=== PATIENT | male | born 1940 | race Caucasian/White ===

== ENCOUNTER 2016-09-28 22:49 | Inpatient (IN) | payer MEDICARE, OTHER ==
--- NOTE | ~2016-09-28 | DS ---
Unit #: [id number] #: [id number] Patient: DARIELA WU [id number] [address] [address] [id number] I MR#: [id number] NAME: DARIELA WU ROOM: 224 Age: 75 Sex: M Admission Date: 09/29/2016 : 1940 Discharge Date: 10/01/2016 Attending Physician: Manuela Escobar M.D. Primary Care Physician: No Primary Care Physician DISCHARGE SUMMARY PRINCIPAL DIAGNOSES 1. Complicated urinary tract infection, catheter-associated with extended spectrum betalactamase producing Escherichia coli. 2. Left renal stone. 3. Acute kidney injury, prerenal, resolved. 4. Hypertension, controlled. 5. Hypokalemia. 6. Diabetes mellitus type 2, insulin requiring, with stable glucose readings. 7. Benign prostatic hypertrophy with urinary retention requiring indwelling Flood catheter. 8. Iron deficiency anemia. 9. Right knee osteoarthritis, symptomatic. 10. History of stroke. 11. Gastroesophageal reflux disease. LEARNING DISABILITIES SPECIALIST Dr. Worley - Urology. PROCEDURE X-ray of the right knee on September 29, 2016, with tricompartmental degenerative change. CLINICAL HISTORY/HOSPITAL COURSE Mr. Wu is a 75-year-old male with a history of known left intrarenal nephrolithiasis who presents to the emergency department with mild elevated temperature and his Flood catheter not functioning correctly. In the emergency department, a urinalysis was concerning for urinary tract infection and patient was subsequently admitted. Flood catheter was changed in the emergency department and patient was placed on empiric Merrem due to a history of ESBL producing E. coli. Ultimately, urine culture has grown ESBL producing E. coli and patient will be maintained on Merrem. He does not clinically appear significantly ill from this infection throughout hospitalization. Dr. Worley was consulted given known history of left renal stone. He has been following the patient and I anticipate that patient will undergo treatment of stone on October 15 as an outpatient as previously scheduled. I will confirm this with Dr. Worley. The patient also had a mild elevation in creatinine of 1.3 upon presentation but with hydration creatinine has normalized. Unit #: [id number] #: [id number] Patient: DARIELA UW The patient was also complaining of right knee pain after his motorized wheelchair fell on it. X-ray was negative and he has been maintained on low dose narcotics. Assuming no plans for treatment of stone during hospitalization, he can be discharged home with IV antibiotics. DISCHARGE CONDITION Stable. DISCHARGE STATUS Discharge to home with home health. DISCHARGE MEDICATIONS 1. Urocit-K, two tablets p.o. t.i.d. with meals. 2. Flomax 0.4 mg daily. 3. Norvasc 10 mg daily. 4. Metoprolol tartrate 12.5 mg b.i.d. 5. Levemir 20 units subcutaneously in the morning. 6. Ferrous gluconate 324 mg b.i.d. 7. Omeprazole 20 mg daily. 8. Tramadol 50 mg p.o. q.6 hours p.r.n. for pain, number given 20. 9. Merrem 500 mg IV q.8 hours through October 06, 2016. DISCHARGE INSTRUCTIONS The patient was instructed to follow a constant carb diet. He can continue Accu-Cheks at home. He can increase activity as tolerated. Should use a walker at all times if ambulating. He will need discontinuation of (1) upon completion of antibiotics. FOLLOWUP The patient should follow up with Dr. Forman, his outpatient urologist, for treatment of stone on October 15 as previously noted. Any changes to discharge will be done as an addendum. Dictated by... Manuela Escobar M.D. ROOPA/jenna TD: 10/01/2016 11:10 JOB #: [id number] DISCHARGE SUMMARY Page 1 of 1 X Manuela Escobar MD X DISCHARGE SUMMARY
--- NOTE | ~2016-09-28 | DS ---
Unit #: [id number] #: [id number] Patient: DARIELA WU [id number] [address] [place], [place] [address] [id number] I MR#: [id number] NAME: DARIELA WU ROOM: 224 Age: 76 Sex: M Admission Date: 09/29/2016 : 1940 Discharge Date: 10/04/2016 Attending Physician: Tito Dominguez M.D. Primary Care Physician: No Primary Care Physician DISCHARGE SUMMARY ADDENDUM Since the time of discharge, we were hopeful that the patient could be sent to rehab, but due to the patient being at his baseline, subacute rehab has been denied at this time. The patient does have much social disruption in his life with not being able to get a ride to his followup appointments and needing a lot of social support, someone to bring food to his house, not being able to care for himself. We had retail planner has asked the patient about long-term care placement. The patient is not agreeable to this at this time. The patient did want to be discharged home with all previous plans "as above" with continued home health and to follow up with Dr. Forman for his outpatient surgery to take care of his left renal stone. At this time the patient is stable for discharge, and I will be discharging the patient with Macrobid, as the ESBL is sensitive to Macrobid, until October 06. DISCHARGE CONDITION Stable. DISCHARGE DIET Resume heart healthy diet with consistent carb diet per [place] [employer] recommendations. ACTIVITIES No activity restrictions. The patient can resume his baseline of ambulating with a rolling walker every day as tolerated. Continue with physical and occupational therapy. DISCHARGE MEDICINES 1. Urocit-K 2160 mg orally t.i.d. with meals. 2. Flomax 0.4 mg orally daily. 3. Norvasc 10 mg orally daily. 4. Lopressor 12.5 mg orally b.i.d. 5. Levemir 20 units subcutaneously every morning. 6. Iron supplement 325 mg orally b.i.d. 7. Ultram 50 mg orally q.6 hours as needed for pain. 8. Omeprazole 20 mg orally daily. 9. Macrobid 100 mg orally b.i.d. until October 06, 2016. FOLLOWUP Previous plans for followup with primary care physician within 1-2 weeks, as well as with Dr. Forman on October 15, as previously noted for outpatient urology stone manipulation. Unit #: [id number] #: [id number] Patient: DARIELA WU data recovery planner has placed a request with I for any further social assistance, especially with trying to obtain rides to followup appointments and will continue with [facility] for PT, OT and nursing needs. Dictated by... Dorina Cross PA-C for Nathaly Rosas/jose TD: 10/05/2016 10:13 JOB #: [id number] DISCHARGE SUMMARY Page 1 of 1 X X DISCHARGE SUMMARY
--- NOTE | ~2016-09-28 | CO ---
Unit #: [id number] #: [id number] Patient: DARIELA WU [id number] [address] [address] [id number] I MR#: [id number] NAME: DARIELA WU ROOM: 224 Age: 75 Sex: M Admission Date: 09/29/2016 : 1940 Attending Physician: Manuela Escobar M.D. Primary Care Physician: No Primary Care Physician Consultation Date: 09/29/2016 CONSULTATION REPORT REASON FOR CONSULTATION Urinary tract infection, indwelling Flood catheter. HISTORY This is a 75-year-old man who was recently discharged from his [facility] yesterday came by EMS with complaints of requesting a new Flood catheter. He has had difficulties with it becoming disconnected from his tubing. He had obvious catheter-related urinary infection, had his catheter changed in the emergency department, and is admitted for catheter-related urinary tract infection. He has a history of ESBL E. coli and retains a left ureteral stent placed by Dr. Hutchins on July 11 for obstructing left renal stones measured as 1.[address] scan the following month on August 15. He also has chronic urinary retention and has been followed by Dr. Forman who reportedly plans suprapubic tube placement for definitive management along with treatment of the stones. The patient is currently not oriented and while conversant is confused. He has a low-grade temperature and is admitted for presumed resistant infection. He was given Rocephin and Zosyn and on admission is started on meropenem. PAST MEDICAL HISTORY 1. CVA in 1982. 2. Hypertension. 3. Diabetes. 4. Hyperlipidemia. 5. Urinary retention. 6. BPH. 7. History of kidney stones, left kidney stones. 8. Clostridium difficile colitis. 9. ESBL, pseudomonas, coagulase-negative staphylococcus urinary tract infections as well as klebsiella and proteus. 10. Coronary artery disease. PAST SURGICAL HISTORY 1. Appendectomy. 2. Sacral wound. 3. Left heel decubitus. ADMISSION MEDICATIONS 1. Metoprolol. 2. Flomax. 3. Protonix. 4. Tylenol. Unit #: [id number] #: [id number] Patient: DARIELA WU 5. ProAir. 6. Levemir. 7. NovoLog. 8. He had been on Bactrim DS. ALLERGIES Tetracycline, codeine. He has had Red man syndrome from vancomycin. FAMILY HISTORY Positive for diabetes. SOCIAL HISTORY One pack per day smoker still. REVIEW OF SYSTEMS Include his catheter problems, decreased mobility. Other 10 systems reviewed and are negative. PHYSICAL EXAMINATION GENERAL: The patient is mildly disheveled, confused. HEENT: Unremarkable. LUNGS: Clear. CARDIAC: Rate and rhythm regular. ABDOMEN: Soft, nontender. Right lower quadrant incisional scar. GENITALIA: Phallus uncircumcised with purulence around the Flood catheter, significant ventral meatal erosion, testes and epididymis normally descended. RECTAL: Digital deferred. EXTREMITIES: No edema. NEUROLOGIC: Grossly intact. DIAGNOSTIC STUDIES LABORATORY: WBC 7.9. Urinalysis high consistent with infection and numerous white cells. Glucose markedly elevated at 726, BUN 32, creatinine 1.1. IMAGING: X-rays: None recent. CT: As noted above. IMPRESSION 1. Chronic indwelling Flood catheter with associated ureteral stent and stones, most certainly indicates a chronically infected urinary system and likely with resistant organism. 2. Severe meatal erosion and other Flood catheter management problems. 3. Urinary retention, increased risk for transurethral resection of prostate. PLAN Will follow culture results with you as he is treated with Merrem. Will confirm Dr. Forman's surgical plans and modify as necessary for eventual treatment of the stone and suprapubic tube placement. Thank you for the consultation, Odilia Robert. Unit #: [id number] #: [id number] Patient: DARIELA WU Dictated by... Sebastian Worley M.D. [facility]/paloma TD: 09/29/2016 13:46 JOB #: [id number] CC: Odilia Martinez M.D. CONSULTATION REPORT Page 1 of 1 X Sebastian Worley MD CONSULTATION REPORT
--- NOTE | ~2016-09-28 | CR170 ---
[facility] A Service of [facility] RADIOLOGY TEXT RESULTS PATIENT: DARIELA WU LOCATION: C2A 224-01 : 42 UNIT #: [id number] AGE: [address]: Manuela Escobar MD SEX: M ORDER DR: [id number] [facility] [address]. [place], [place] [address] [id number] I MR#: [id number] Acc #: [id number] NAME: DARIELA WU : 1940 SEX: M STUDY DATE/TIME: 09/29/2016 18:36 UNIT: C2A ROOM: 224 STUDY DESCRIPTION: CR Knee 2 Views Rt Attending Physician: Manuela Escobar M.D. Ordering Physician: Manuela Escobar M.D. Primary Care Physician: Primary Care Physician No MEDICAL IMAGING REPORT This report is preliminary unless electronic signature is present EXAM Right knee INDICATIONS Right knee pain and swelling 6 weeks after a fall. FINDINGS 2 views of the right knee without comparison. There is no acute fracture, dislocation, or effusion. There is moderate joint space narrowing particularly on the lateral joint compartment. There is some associated osteophyte formation. IMPRESSION Moderate tricompartmental degenerative change of the knee. No acute findings. Dictated by... Reno Antony M.D. THIS IS AN ELECTRONICALLY VERIFIED REPORT Reno Antony M.D. at 09/30/2016 3:22 PM [facility]/isabell TD: 09/29/2016 22:55 JOB #: [id number] MEDICAL IMAGING REPORT Page 1 of 1 COPY
--- NOTE | ~2016-09-28 | HP ---
Unit #: [id number] #: [id number] Patient: DARIELA WU [id number] [address] [address] [id number] I MR#: [id number] NAME: DARIELA WU ROOM: 48080 Age: 75 Sex: M Admission Date: 09/29/2016 : 1940 Attending Physician: Odilia Martniez M.D. Primary Care Physician: No Primary Care Physician HISTORY AND PHYSICAL CHIEF COMPLAINT Complicated urinary tract infection. HISTORY This 75-year-old male with prior CVA, hypertension, CAD, urinary retention with chronic Flood catheter in place, is admitted for a urinary tract infection. Again the patient has a Flood catheter in place. Apparently he has been experiencing some difficulty with a Flood, not being connected properly, I am unsure at this juncture. He came to this emergency department late last evening with a temperature of 99.2 but without CVA, percussion tenderness. His Flood catheter was changed out, his current urinalysis does show significant pyuria. Patient at this time is looking comfortable and not systemically ill. Does have a history, however, of ESBL. He is followed by Dr. Harry Forman for history of kidney stones. Has a 2.5 left renal calculi with plans to perform further procedures in the future. In the ER he was given Tylenol, 1 gram of Rocephin, and Zosyn. He was last admitted to this facility 07/2016 for ESBL UTI. PAST MEDICAL HISTORY 1. Hypertension. 2. AODM. 3. Hyperlipidemia. 4. CVA 1982. 5. Iron deficiency anemia. 6. History of BPH and urinary retention with chronic Flood catheter in place. 7. History of kidney stones requiring stent placement. 8. C. difficile colitis 08/09. 9. ESBL UTI, Pseudomonas urinary tract infection and Staph coag negative UTI. 10. Also Klebsiella and Proteus urinary tract infections in the past. 11. Cardiac catheterization 02/2013 revealing 60% to 70% stenosis of the RCA. Echo revealed an ejection fraction of 50% to 55% with mild MR and TR. 12. Appendectomy. 13. Sacral wound. 14. Left heel decub. ALLERGIES Tylenol #3 and tetracycline. HOME MEDICATIONS Unit #: [id number] #: [id number] Patient: DARIELA WU. Patient states that he takes 20 units of Levemir daily sliding scale insulin. He was discharged 07/2016 with Lopressor 12.5 mg b.i.d.; iron sulfate 324 mg daily; Protonix 40 mg daily; Flomax 0.4 mg daily; Claritin 10 mg as needed. FAMILY HISTORY Hypertension, diabetes mellitus, CAD, malignancy, prostate cancer. SOCIAL HISTORY The patient states that he lives in his own dwelling and he and a neighbor help each other out. He is a nonsmoker and does not drink alcohol. Uses a walker at home. REVIEW OF SYSTEMS Notable for complaints of a Flood malfunction, diabetes, hypertension, anemia, CVA, left heel decub, hypertension. All other systems were reviewed and otherwise negative. PHYSICAL EXAMINATION GENERAL: Thin, 75-year-old male currently in no acute distress. VITAL SIGNS: Temperature 99.2, pulse 101, respiration 20, blood pressure 175/69, O2 saturation 99% on room air. HEENT: Eyes - PERRLA, pharynx benign. NECK: Supple without adenopathy or thyromegaly. CHEST: Clear. BACK: Without CVA tenderness. CARDIAC: Normal S1 and S2 without murmur. ABDOMEN: Bowel sounds are present. No hepatosplenomegaly, tenderness or masses. Flood catheter at this time is draining clear appearing urine. EXTREMITIES: Notable for some DJD of the knees and mild pedal edema. NEUROLOGIC: Patient is awake, alert and oriented. His cranial nerves are intact, except that he is hard of hearing. I believe he does have decreased vision as well. Of equal strength throughout but is weak on exam. DIAGNOSTIC STUDIES LABORATORY STUDIES: Hematocrit is 31, which is his baseline normal white count, platelet count, MCV is 81. SMA 12 - glucose 312, BUN 38. Urinalysis - positive leukocyte esterase, nitrates, protein, glucose, with 10-25 red cells, 100-200 white cells, 2+ bacteria. ASSESSMENT 1. Complicated UTI with Flood catheter versus possible colonization. Patient is not systemically ill but does have a low grade temperature. 2. History of kidney stones and stent but no CVA tenderness on exam, or leukocytosis. I do not believe this represents obstructive pyelonephritis. 3. Dehydration. 4. Uncontrolled diabetes mellitus. 5. Hypertension. 6. CVA in 1982. 7. History of iron deficiency anemia. 8. History of ESBL UTI and sepsis recently. 9. Patient also has a history of polymicrobial UTI with urinary retention and Flood catheter in place along with BPH. 10. Chronic pedal edema left heel decub. 11. History of C. difficile colitis. 12. History of CAD with normal LV function. Unit #: [id number] #: [id number] Patient: DARIELA WU PLANS 1. IV fluids. 2. Diabetic control. 3. Meropenem pending cultures. Will start Florastor. 4. Urology to see in consultation. 5. Resend UA and urine C and S. 6. Verify home medicines. 7. SCDs for DVT prophylaxis. 8. Wound nurse to see. Dictated by Odilia Martinez M.D. AML/ts TD: 09/29/2016 04:59 JOB #: [id number] HISTORY AND PHYSICAL Page 1 of 1 X Odilia Martinez MD X HISTORY AND PHYSICAL
[2016-09-28 21:38] LABS: URINE SOURCE CLEAN CATCH
[2016-09-28 22:11] LABS: URINE APPEARANCE CLOUDY; URINE BILIRUBIN NEG (NEG); URINE BLOOD 1+ (NEG); URINE COLOR YELLOW; URINE GLUCOSE >1000 MG/DL (NEG); URINE KETONE NEG (NEG); URINE LEUKOCYTE ESTERASE 2+ (NEG); URINE NITRATE POS (NEG); URINE PH 5.5 (5-8); URINE PROTEIN TRACE (NEG); URINE UROBILINOGEN 0.2 MG/DL (NEG)
[2016-09-28 22:13] LABS: CULTURE INDICATED? YES; URINE BACTERIA AUWI 2+ (NEGATIVE); URINE SQUAMOUS EPITHELIAL CELL NONE SEEN /[HPF]; UWBCS1 AUWI 100-200 (0-5)
[2016-09-28 22:27] LABS: BASOPHIL% 0.4 % (0-2.5); EOSINOPHIL# 0.1 X10e3 (0-0.7); EOSINOPHIL% 1.4 % (0.0-7.0); HEMOGLOBIN 10.2 gm/dL (13.0-16.0); LYMPHOCYTE# 1.6 X10e3 (1.0-3.5); LYMPHOCYTE% 19.3 % (17.0-45.0); MEAN CELL VOLUME 80.9 FL (83-96); MEAN CORPUSCULAR HEMOGLOBIN 26.7 PG (28-34); MEAN PLATELET VOLUME 8.3 FL (6.5-11.5); MONOCYTE# 1.3 X10e3 (0-1.0); MONOCYTE% 15.1 % (3.0-12.0); NEUTROPHIL# 5.4 X10e3 (1.5-7.1); NEUTROPHIL% 63.8 % (40-75); PLATELET COUNT 203 X10e3 (140-420); RED BLOOD COUNT 3.83 X10e (3.90-5.60); RED CELL DISTRIBUTION WIDTH 14.7 % (11.0-15.5); WHITE BLOOD COUNT 8.5 X10e3 (4.0-10.5)
[2016-09-28 22:31] LABS: DIFF IND NO
[2016-09-28 22:43] LABS: ALBUMIN SERUM 3.7 g/dL (3.5-5.0); BILIRUBIN, DIRECT 0.1 mg/dL (0.0-0.2); BILIRUBIN,INDIRECT 0.4 mg/dL (0.0-0.9); BILIRUBIN,TOTAL 0.5 mg/dL (0.2-2.0); BUN/CREATININE RATIO 29.23; CREATININE SERUM 1.3 mg/dL (0.6-1.4); GLOM FILT RATE Estimated 54.1 mL/min (>60); POTASSIUM 3.7 mmol/L (3.5-5.1); PROTEIN TOTAL SERUM 6.9 g/dL (6.0-8.3)
[~2016-09-28 22:49] MED LIST: ACETAMINOPHEN PO; ADVAIR 250-501 EACH IH; ALBUTEROL17 GM INH; AMITRIPTYLINE H25 MG PO; AMITRYPTYLINE PO; ANTACID LIQUID355 M1 PO; ANTIVERT PO; ASCORBIC ACID500 M2 PO; ASPIRIN81 M2 PO; AUGMENTIN PO; BACTRIM DS TABL1 TA1 PO; CEFTIN PO; CENTRUM SILVER PO; CIPRO PO; CLOTRIMAZOLE/BE15 G1 TP; COLACE PO; COLACE50 MG PO; COREG3.125 MG PO; FLEXERIL PO; FLEXERIL10 MG PO; FLOMAX0.4 M1 PO; GLIPIZIDE10 MG PO; GLUCOPHAGE500 MG PO; GLUCOSAMINE & C1 CAP PO; GLUCOTROL PO; GLUCOTROL10 MG PO; HAIR, SKIN & N1 EAC1 PO; HYDROCODON-ACE1 EAC7 PO; IBUPROFEN PO; IBUPROFEN800 MG PO; JUVEN1 PKT PO; KLONOPIN PO; LEVAQUIN PO; LEVAQUIN750 MG PO; LEVEMIR FL100 UNIT/1 SUBQ; LEVEMIR SUBQ; LEVEMIR100 U/ML SQ; LIPITOR PO; LIPITOR20 MG PO; LISINOPRIL10 MG PO; LISINOPRIL2.5 MG PO; LISINOPRIL5 MG PO; LOMOTIL TABLET1 TAB PO; LORTAB 5/500 TA1 TA1 PO; MACROBID100 MG DOB; MECLIZINE HCL25 M1 PO; MEDI-MECLIZINE25 M1 PO; MEDROL PO; METOPROLOL TAR25 MG PO; MOBIC PO; MOBIC15 MG PO; NIFEREX-150 CAP1 CAP PO; NOVOLIN R100 UNITS/; NOVOLOG100 U/ML SUBQ; NOVOLOG100 UNITS/ INJ; OMEPRAZOLE40 MG PO; PANTOPRAZOLE SO40 MG PO; PERCODAN TABLET1 TAB PO; PRED FORTE1 ML OP; PRED FORTE1 ML OS; PRILOSEC PO; PROAIR HFA8.5 GM INH; PROTONIX PO; REZYST250 MG PO; SANTYL15 G1 TP; SULFAMETHOXAZOLE5 ML IV; VANTIN200 MG PO; VITAMIN C500 MG PO; VOLTAREN 0.1%2.5 M1 OS; ZINC SULFATE220 M1 PO; ZITHROMAX PO; ZOCOR10 MG PO
[2016-09-29 03:33] LABS: URINE SOURCE CLEAN CATCH
[2016-09-29 03:37] LABS: URINE APPEARANCE CLOUDY; URINE BILIRUBIN NEG (NEG); URINE BLOOD 2+ (NEG); URINE COLOR YELLOW; URINE GLUCOSE NEG (NEG); URINE KETONE NEG (NEG); URINE LEUKOCYTE ESTERASE 3+ (NEG); URINE NITRATE POS (NEG); URINE PH 5.5 (5-8); URINE PROTEIN 1+ (NEG); URINE SPECIFIC GRAVITY 1.018 (1.003-1.035); URINE UROBILINOGEN 0.2 MG/DL (NEG)
[2016-09-29 03:40] LABS: URBCS1 AUWI 25-50 /[HPF] (0-2); URINE BACTERIA AUWI 3+ (NEGATIVE); URINE SQUAMOUS EPITHELIAL CELL NONE SEEN /[HPF]; UWBCS1 AUWI 200-300 (0-5)
[2016-09-29 06:40] LABS: BASOPHIL% 0.4 % (0-2.5); EOSINOPHIL# 0.2 X10e3 (0-0.7); EOSINOPHIL% 2.6 % (0.0-7.0); HEMATOCRIT 32.1 % (38.0-50.0); HEMOGLOBIN 10.8 gm/dL (13.0-16.0); LYMPHOCYTE# 1.9 X10e3 (1.0-3.5); LYMPHOCYTE% 24.3 % (17.0-45.0); MEAN CELL VOLUME 80.5 FL (83-96); MEAN CORPUSCULAR HEMOGLOBIN 27.2 PG (28-34); MEAN CORPUSCULAR HGB CONC 33.8 g/dL (30-36); MEAN PLATELET VOLUME 8.7 FL (6.5-11.5); MONOCYTE# 1.1 X10e3 (0-1.0); MONOCYTE% 14.2 % (3.0-12.0); NEUTROPHIL# 4.6 X10e3 (1.5-7.1); NEUTROPHIL% 58.5 % (40-75); PLATELET COUNT 194 X10e3 (140-420); RED BLOOD COUNT 3.98 X10e (3.90-5.60); WHITE BLOOD COUNT 7.9 X10e3 (4.0-10.5)
[2016-09-29 06:46] LABS: DIFF IND NO
[2016-09-29 07:04] LABS: BUN/CREATININE RATIO 29.09; CALCIUM SERUM 9.1 mg/dL (8.4-10.2); CREATININE SERUM 1.1 mg/dL (0.6-1.4); GLOM FILT RATE Estimated 66.3 mL/min (>60); POTASSIUM 3.3 mmol/L (3.5-5.1)
[2016-09-29] MEDS ORDERED: SANTYL15 G1 TOP (10:20)
[2016-09-29] MEDS ORDERED: LEVEMIR100 UNITS/ SUBQ ×2 (10:40→10:41)
[2016-09-29] MEDS ORDERED: OMEPRAZOLE20 M1 PO (10:40)
[2016-09-29] MEDS ORDERED: NOVOLOG FL100 UNIT/1 (10:40)
[2016-09-29] MEDS ORDERED: GLUCOPHAGE500 M1 PO (10:41)
[2016-09-29] MEDS ORDERED: OXYBUTYNIN15 MG/BOTT PO (10:42)
[2016-09-29] MEDS ORDERED: VENTOLIN5 MG/ML INH (10:42)
[2016-09-29] MEDS ORDERED: PYRIDIUM100 MG PO (10:43)
[2016-09-30 06:24] LABS: BUN/CREATININE RATIO 37.77; CALCIUM SERUM 8.6 mg/dL (8.4-10.2); CREATININE SERUM 0.9 mg/dL (0.6-1.4); GLOM FILT RATE Estimated 84.4 mL/min (>60); POTASSIUM 4.4 mmol/L (3.5-5.1)
[2016-10-01 06:49] LABS: CALCIUM SERUM 8.7 mg/dL (8.4-10.2); CREATININE SERUM 0.8 mg/dL (0.6-1.4); GLOM FILT RATE Estimated 88.7 mL/min (>60); POTASSIUM 4.7 mmol/L (3.5-5.1)
[2016-10-01] MEDS ORDERED: MERREM500 MG IV (11:04)
[2016-10-01] MEDS ORDERED: TRAMADOL HCL50 M2 PO (11:05)
[2016-10-01] MEDS ORDERED: LOPRESSOR (11:06)
[2016-10-01] MEDS ORDERED: FLOMAX0.4 M1 PO (11:08)
[2016-10-01] MEDS ORDERED: NORVASC10 MG PO (11:08)
[2016-10-01] MEDS ORDERED: UROCIT K (11:08)
[2016-10-01] MEDS ORDERED: FERROUS GLUCON324 M1 (11:08)
[2016-10-03 05:11] LABS: HEMATOCRIT 27.8 % (38.0-50.0); HEMOGLOBIN 9.3 gm/dL (13.0-16.0); MEAN CELL VOLUME 80.8 FL (83-96); MEAN CORPUSCULAR HGB CONC 33.4 g/dL (30-36); MEAN PLATELET VOLUME 8.9 FL (6.5-11.5); RED BLOOD COUNT 3.44 X10e (3.90-5.60); RED CELL DISTRIBUTION WIDTH 14.9 % (11.0-15.5); WHITE BLOOD COUNT 6.6 X10e3 (4.0-10.5)
[2016-10-03 06:39] LABS: BUN/CREATININE RATIO 46.66; CALCIUM SERUM 8.7 mg/dL (8.4-10.2); CREATININE SERUM 0.9 mg/dL (0.6-1.4); GLOM FILT RATE Estimated 83.8 mL/min (>60); POTASSIUM 5.1 mmol/L (3.5-5.1)
[2016-10-04] MEDS ORDERED: UROCIT K PO (14:52)
[2016-10-04] MEDS ORDERED: METOPROLOL TAR25 MG PO (14:55)
[2016-10-04] MEDS ORDERED: MACROBID100 M1 PO (14:57)
[2016-10-04] MEDS ORDERED: PROBIOTIC250 MG PO (15:01)
== END 2016-10-04 19:15 | disposition home health service (06) | DRG 699 ==
LOC: CED 22:49 → CEDOF 09-29 02:20 → C2A 09-29 10:39
PROVIDERS: Emergency Medicine; Internal Medicine; Urology
DX: T83.511A Infection and inflammatory reaction due to indwelling urethral catheter, initial encounter (principal); N17.9 Acute kidney failure, unspecified; B96.20 Unspecified Escherichia coli [E. coli] as the cause of diseases classified elsewhere; N20.0 Calculus of kidney; I10 Essential (primary) hypertension; E11.9 Type 2 diabetes mellitus without complications; Y73.1 Therapeutic (nonsurgical) and rehabilitative gastroenterology and urology devices associated with adverse incidents; N39.0 Urinary tract infection, site not specified; Z96.0 Presence of urogenital implants; I25.10 Atherosclerotic heart disease of native coronary artery without angina pectoris; E87.6 Hypokalemia; E86.0 Dehydration; N40.1 Benign prostatic hyperplasia with lower urinary tract symptoms; R33.8 Other retention of urine; D50.9 Iron deficiency anemia, unspecified; M17.11 Unilateral primary osteoarthritis, right knee; K21.9 Gastro-esophageal reflux disease without esophagitis; Z86.73 Personal history of transient ischemic attack (TIA), and cerebral infarction without residual deficits; F17.210 Nicotine dependence, cigarettes, uncomplicated; Z79.4 Long term (current) use of insulin; Z79.899 Other long term (current) drug therapy; Z60.2 Problems related to living alone; Z66 Do not resuscitate
CPT/HCPCS: 51702; 73560; 74000; 80048; 80076; 81003; 82947; 85025; 85027; 87086; 87088; 87186; 97162; 97167; 99285; G8978-GP; G8979-GP; G8980-GP; G8987-GO; G8988-GO; G8989-GO; J0696; J1815; J2185; J2543

== ENCOUNTER 2017-01-05 00:19 | Emergency (ER) | payer MEDICARE, OTHER ==
[~2017-01-05 00:19] MED LIST changes: +FERROUS GLUCON324 M1; +GLUCOPHAGE500 M1 PO; +LEVEMIR100 UNITS/ SUBQ; +LOPRESSOR; +MACROBID100 M1 PO; +MERREM500 MG IV; +NORVASC10 MG PO; +NOVOLOG FL100 UNIT/1; +OMEPRAZOLE20 M1 PO; +OXYBUTYNIN15 MG/BOTT PO; +PROBIOTIC250 MG PO; +PYRIDIUM100 MG PO; +SANTYL15 G1 TOP; +TRAMADOL HCL50 M2 PO; +UROCIT K; +UROCIT K PO; +VENTOLIN5 MG/ML INH
== END 2017-01-05 07:25 | disposition home or self-care (01) ==
LOC: CED 00:19
DX: T83.018A Breakdown (mechanical) of other urinary catheter, initial encounter (principal); I10 Essential (primary) hypertension; J44.9 Chronic obstructive pulmonary disease, unspecified; K21.9 Gastro-esophageal reflux disease without esophagitis; F17.210 Nicotine dependence, cigarettes, uncomplicated; Z90.49 Acquired absence of other specified parts of digestive tract; Z88.1 Allergy status to other antibiotic agents; Z88.5 Allergy status to narcotic agent
CPT/HCPCS: 99284

== ENCOUNTER 2017-02-21 08:04 | Emergency (ER) | payer MEDICARE, OTHER ==
[~2017-02-21] VITALS: Ht 175.3 cm; Wt 74.8 kg
[2017-02-22] MEDS ORDERED: LEVEMIR SUBQ (11:57)
[2017-02-22] MEDS ORDERED: GABAPENTIN300 M2 PO (11:58)
[2017-02-22] MEDS ORDERED: ALBUTEROL17 GM INH (11:58)
[2017-02-22] MEDS ORDERED: OXYBUTYNIN CHLO15 MG PO (12:00)
== END 2017-02-21 09:59 | disposition home or self-care (01) ==
LOC: CED 08:04
DX: T83.098A Other mechanical complication of other urinary catheter, initial encounter (principal); E11.9 Type 2 diabetes mellitus without complications; I10 Essential (primary) hypertension; K21.9 Gastro-esophageal reflux disease without esophagitis; Z98.890 Other specified postprocedural states; Z87.442 Personal history of urinary calculi; Z88.5 Allergy status to narcotic agent; Z88.1 Allergy status to other antibiotic agents; Z79.899 Other long term (current) drug therapy
CPT/HCPCS: 99283

== ENCOUNTER 2017-02-21 20:35 | Inpatient (IN) | payer MEDICARE, OTHER ==
[~2017-02-21] VITALS: Ht 175.3 cm; Wt 58.5 kg
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
--- NOTE | ~2017-02-21 | A ---
[facility] Nutrition Therapy DATE: 02/22/17 Patient: DARIELA WU Physician: CARLYLE Address: [address] Room/Bed: [address] [place] [address], Zip: [place] [address] Admit Date: 02/22/17 Date of : 42 Height: 5 9 Weight: 128 58.5 NUTRITIONAL ASSESSMENT: REASON: ONE NUTRITION RISK PT RE: PRESSURE ULCER/NON-HEALING WOUND PT IS 76 Y.O. MALE ADMITTED FOR CATHETER ASSOCIATED UTI, UNCONTROLLED DM PMH: DM, BPH, COPD, CVA, HTN, CAD, HLD, KIDNEY STONES Anthropometrics: 5'9", WT: 128# (58 KG), BMI: 19, 80%IBW Labs: GLU: 249. HgB A1c: 9.4 (REFLECTS POORLY CONTROLLED DM) Meds: PROTONIX, LEVEMIR, NACL, NOVOLOG, PROTONIX, LAXATIVE, ZOFRAN I/O & Bowel function: 620/100 Skin Integrity: STAGE 2-3 PRESSURE ULCER (R) BUTTOCKS; (L) HEEL DECUB EDEMA: BLE TRACE EDEMA Estimated Nutrition Needs: INCREASED NEEDS 2' PT LOW BODY WEIGHT, SKIN BREAKDOWN NOTED, ?WEIGHT LOSS + DECREASED PO INTAKE AND APPETITE Assessment: CHART REVIEWED AND EVENTS NOTED. PT SEEN FOR ONE NUTRITION RISK PT RE: PRESSURE ULCER/NON-HEALING WOUND. PT AWAKE BUT SLIGHTLY CONFUSED AT TIME OF VISIT REPORTING DECREASED PO INTAKE AND APPETITE PAST FEW WEEKS. PT REPORTS WEIGHT LOSS BUT UNABLE TO KNOW AMOUNT AND TIME FRAME. PER [email or web address], PT WEIGHED ~136-165# 2016. PT STATES HE HAS NO TEETH. THIS RD ENCOURAGED ADEQUATE KCAL AND PROTEIN INTAKE TO PROMOTE SKIN HEALING WELL PREVENT FURTHER WEIGHT LOSS, PT AGREED TO GLUCERNA SHAKES + OCTAVIO BID. RD ALSO PROVIDED VERBAL CC DIET + PRESSURE ULCER DIET EDUCATION. PT REPORTED NOT BEING ABLE TO READ. PT REPORTS "REALLY LIKING HIS SODA INTAKE". RD ENCOURAGED PT TO CUT BACK ON SODA INTAKE AND DRINK MORE WATER, PT WAS NOT AGREEABLE TO IT. RD ALSO LISTED SOFT HIGH PROTEIN FOODS FOR PT TO CONSIDER EATING. RD WAS ABLE TO ANSWER PT'S QUESTIONS APPROPRIATELY. RD TO FOLLOW. SEE RECOMMENDATIONS BELOW. Dx: INADEQUATE PROTEIN-ENERGY INTAKE R/T PMH, CURRENT CLINICAL CONDITION AEB LOW BMI, LOW BODY 80%IBW, ?WEIGHT LOSS NOTED. 2. INCREASED NUTRIENT NEEDS R/T SKIN BREAKDOWN AEB STAGE 2-3 PRESSURE ULCER (R) BUTTOCKS, (L) HEEL DECUB OBSERVED. Intervention: 1. CC DIET 2. GLUCERNA SHAKES BID 3. OCTAVIO BID 4. VERBAL DIET EDUCATION [facility] Nutrition Therapy DATE: 02/22/17 Patient: DARIELA WU Physician: CARLYLE Address: [address] [place] [address] Room/Bed: [address] [place] [address], Zip: [place] [address] Admit Date: 02/22/17 Date of : 42 Height: 5 9 Weight: 128 58.5 Monitoring, Evaluation and Goals: 1. ORAL INTAKE; CONSUME/TOLERATE >50% OF MEALS AND SUPPLEMENTS 2. WEIGHTS; PREVENT FURTHER WEIGHT LOSS 3. SKIN; PROMOTE SKIN HEALING 4. LABS; GLU MONITOR: -PO INTAKE/APPETITE -WEIGHTS -SUPPLEMENT INTAKE Recommendations: 1. PLEASE ORDER STRAWBERRY GLUCERNA SHAKES BID W/MEALS FOR ADDITIONAL PROTEIN AND KCAL 2. ORDER ORANGE OCTAVIO BID W/MEALS TO PROMOTE SKIN HEALING 3. CONSIDER ADDING MVI W/MINERAL + 500 MG VITAMIN C BID TO PROMOTE SKIN HEALING 4. ENCOURAGE ADEQUATE PO INTAKE, ESPECIALLY SOFT PROTEIN SOURCES RD WILL F/U PER PROTOCOL PT IS MILD/MODERATELY COMPROMISED Respectfully, TANYA QUIROS MS, RD, LD [employer] [facility] [employer] cc: client file
--- NOTE | ~2017-02-21 | EKG ---
PATIENT: DARIELA WU UNIT #: [id number] Ventricular Rate: 83 BPM Atrial Rate: 83 BPM P-R Interval: 146 ms QRS Duration: 122 ms Q-T Interval: 408 ms QTC Calculation(Bezet): 479 ms P [place]: 62 degrees Calculated R [place]: -63 degrees Calculated T [place]: 74 degrees Diagnosis Line: Diagnosis Line: Sinus rhythm with sinus arrhythmia with occasional Diagnosis Line: Premature ventricular complexes Diagnosis Line: Right bundle branch block Diagnosis Line: Left anterior fascicular block Diagnosis Line: Bifascicular block Diagnosis Line: Moderate voltage criteria for LVH, may be normal Diagnosis Line: variant Diagnosis Line: Cannot rule out Septal infarct (cited on or before Diagnosis Line: 13-AUG-2016) Diagnosis Line: Abnormal ECG Diagnosis Line: When compared with ECG of 13-AUG-2016 22:29, Diagnosis Line: Premature ventricular complexes are now Present Diagnosis Line: Questionable change in initial forces of Septal Diagnosis Line: leads Diagnosis Line: Confirmed by IGNACIO RHODES MD ([id number]) on 02/23/2017 Diagnosis Line: 7:26:50 AM INTERPRETING MD: CARMELO PICKERING
--- NOTE | ~2017-02-21 | CR72 ---
[facility] A Service of [facility] & [facility] RADIOLOGY TEXT RESULTS PATIENT: DARIELA WU LOCATION: C2A 241-01 : 42 UNIT #: [id number] AGE: [address]: Juan Wu MD SEX: M ORDER DR: [id number] [facility] [address] [place], [place] [address] [id number] MR#: [id number] Acc #: [id number] NAME: DARIELA WU : 1940 SEX: M STUDY DATE/TIME: 02/21/2017 21:36 UNIT: A ROOM: 241 STUDY DESCRIPTION: CR Chest Single View Portable Attending Physician: Juan Wu M.D. Ordering Physician: Joao Cespedes M.D. Primary Care Physician: No Primary Care Physician MEDICAL IMAGING REPORT This report is preliminary unless electronic signature is present EXAM Portable chest HISTORY Multiple falls today, altered mental status, congestion. COMPARISON 08/13/2016 FINDINGS Portable view of the chest demonstrates no infiltrates or effusions. Heart and mediastinum unremarkable. Minimal aortic atherosclerotic changes. Osseous structures unremarkable for age. IMPRESSION No acute findings. Dictated by... Drew Carreno M.D. THIS IS AN ELECTRONICALLY VERIFIED REPORT Drew Carreno M.D. at 02/22/2017 2:34 PM PIA/jenna TD: 02/22/2017 08:42 JOB #: [id number] MEDICAL IMAGING REPORT Page 1 of 1 COPY
--- NOTE | ~2017-02-21 | DS ---
Unit #: [id number] #: [id number] Patient: DARIELA WU [id number] [address] [address] [id number] I MR#: [id number] NAME: DARIELA WU ROOM: 241 Age: 76 Sex: M Admission Date: 02/22/2017 : 1940 Discharge Date: 02/25/2017 Attending Physician: Juan Wu M.D. Primary Care Physician: No Primary Care Physician DISCHARGE SUMMARY ADMISSION DIAGNOSES 1. Complicated urinary tract infection with indwelling Flood catheter. Patient has history of extended spectrum beta lactamases urinary tract infection. 2. Uncontrolled insulin-dependent diabetes mellitus. 3. Sacral decubitus ulcer present on admission. 4. Hyperlipidemia. 5. History of cerebrovascular accident in 1982. 6. History of iron-deficiency anemia. 7. History of benign prostatic hypertrophy and urinary retention with Flood catheter in place. 8. History of Clostridium difficile colitis. DISCHARGE DIAGNOSES 1. Extended spectrum beta lactamases urinary tract infection with chronic indwelling Flood catheter, status post catheter change during this hospitalization. 2. History of extended spectrum beta lactamases urinary tract infection. 3. Insulin-dependent diabetes mellitus. 4. Stage III sacral decubitus ulcer present on admission. 5. Hyperlipidemia. 6. History of cerebrovascular accident in 1982. 7. History of iron-deficiency anemia. 8. History of benign prostatic hypertrophy and urinary retention with chronic Flood catheter, established with Dr. Matthew Forman. 9. History of Clostridium difficile colitis without diarrhea. 10. Constipation, refuses suppository. 11. Decreased mobility. 12. Mild hyponatremia, improving. 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 DISPOSITION [facility] where a private room and bed are available today for discharge. DISCHARGE MEDICATIONS 1. Ventolin two puffs inhaled every four hours as needed for shortness of air. 2. Urocit K 2160 mg p.o. t.i.d. with meals. 3. Flomax 0.4 mg p.o. bedtime. 4. Neurontin 300 mg p.o. at bedtime. 5. Amlodipine besylate 10 mg p.o. daily. Unit #: [id number] #: [id number] Patient: DARIELA WU 6. Lopressor 12.5 mg p.o. daily. 7. Oxybutynin chloride ER 15 mg p.o. daily. 8. Levemir 20 units subcutaneous b.i.d. 9. Phenazopyridine HCl 200 mg p.o. t.i.d. p.r.n. dysuria. 10. Florastor 250 mg p.o. b.i.d. 11. Tramadol 50 mg p.o. every six hours. Prescription to be written by Dr. Wu prior to discharge. 12. Protonix 40 mg p.o. daily. 13. Pneumococcal vaccine 25 mcg/0.5 mL if indicated and not contraindicated prior to discharge. 14. Meropenem 500 mg IV q.8 hours for a total of 14 days. Start date February 22, 2017. Stop date after the last dose on March 07, 2017. CONDITION Stable. DISPOSITION [facility] to private room for ESBL contact precautions. DIET Mechanical ground, constant carbohydrate diet. ACTIVITY PT, OT evaluation and treat. DISCHARGE INSTRUCTIONS 1. Patient is to schedule a followup appointment with [facility] and with [facility] for followup after discharge from rehab. [facility] 2. Patient will follow up with Matthew Forman M.D. as advised by Dr. Forman at his last visit. 3. Flood catheter is to remain in place as this patient has a chronic indwelling Flood catheter. 4. A midline for IV antibiotic therapy is to be placed prior to discharge to the rehab facility today. 5. Please refer to hospital course for wound care orders. DIAGNOSTIC STUDIES LABORATORY: WBC 7.6, hemoglobin 8.8, hematocrit 26.1, platelets 199,000. Sodium 132, potassium 5, chloride 99, CO2 of 28, glucose 147, BUN 34, creatinine 0.7, calcium 8.4. Magnesium 1.7. Urine culture final: E. coli greater than 100,000 CFU per mL with ESBL production confirmed and sensitive to meropenem per C and S report. Hemoglobin A1c 9.4. IMAGING: Portable chest x-ray: Impression - no acute findings. voice pathologist recommended for Glucerna shakes twice daily, Daniel b.i.d. with meals. Encouraged to consume and tolerate more than 50% of meals and supplements. Weight checks to prevent further weight loss. HOSPITAL COURSE The patient is a 76-year-old male who presented to [facility] on the date of admission for complaints of urinary tract with indwelling Flood catheter and uncontrolled insulin-dependent diabetes mellitus. Patient has a history of ESBL UTI and chronic indwelling Flood catheter. His Flood catheter ended up in the scooter wheel and the catheter was pulled out. The patient's catheter was Unit #: [id number] #: [id number] Patient: DARIELA WU replaced and during the day it was noted his blood sugar elevated to 466. He was given a liter of saline as well as regular insulin IV and 500 mg of meropenem given his history of ESBL. Additionally, the patient was noted to have a stage III sacral decubitus present on admission. Patient was ultimately admitted to the hospital for further evaluation and management of his condition and co-morbidities. Please refer to the history and physical report for complete details. The patient was treated with Merrem 500 mg IV q.8 hours since admission given history of ESBL UTI. Final urine culture returned this morning and confirmed recurrent ESBL UTI sensitive to Merrem. The patient is having a midline placed at the time of this dictation in anticipation for completion of a total of 14 days of IV Merrem therapy. Start date for Merrem is February 22, 2017 and stop date is after the last dose on March 07, 2017. Again, the patient's Flood catheter was replaced in the emergency department. The patient has had no gross hematuria or periurethral hematuria. He has received Pyridium and therefore he has had orange-colored urine in the Flood catheter tubing. Patient is afebrile and all vital signs are stable. He is to follow up with Dr. Matthew Forman with whom he is established as Dr. Humphrey would have advised at the patient's last office appointment. Insulin-dependent diabetes mellitus, uncontrolled: The patient's hemoglobin A1c returned elevated as dictated above. There was confusion with regard to the medications the patient was supposed to be taking at home and the medications that had actually been filled according to the patient's pharmacist at [facility]. The patient was started on Levemir 20 units subcutaneous daily as well as sliding scale insulin protocol. Due to persistent hyperglycemia, the patient required increase of Levemir to 20 units subcutaneous twice daily. The patient's Accu-Cheks are beginning to improve with a.m. Accu-Cheks at 129. Patient has been tolerating food and fluid well. He has had no episodes of hypoglycemia. At this time, the patient has been cleared for discharge with instructions to follow up with his primary care provider. Patient presented to the emergency department on the date of admission with stage III right sacral decubitus as well as a pressure area on the left heel. The patient was evaluated by DONALD Oshea and recommendations and wound care orders were given. The patient was placed on a waffle cushion to the chair when out of bed. Patient has received heel pressure relief with Mepilex heel protectors while in bed every 72 hours. Briefs and diapers have been discouraged. The wounds are to be cleaned with foam cleanser twice daily and p.r.n. Patient also has some irritated areas in the groin area that are to be cleansed twice daily with foam cleanser as well. Aquacel was to be applied to the border of the wounds on the buttocks every 72 hours or as needed. Patient also requires a waffle mattress on the bed. Desenex powder may also be applied to groin folds, (1) layers b.i.d. Groin wounds are to be left open to air. History of CVA in the early 1980s: Patient denies this; however, patient has physical changes that are consistent with this information, specifically leaning to the right. Patient has been willing and able to comply with physical therapy during the hospitalization. Patient has a history of iron-deficiency anemia: The patient's hemoglobin is stable as dictated above today. The patient has had no overt signs or symptoms of bleeding. Patient also has a remote history of Clostridium difficile colitis. Patient has not had a bowel movement since admission Unit #: [id number] #: [id number] Patient: DARIELA WU and has refused suppository. This is likely to improve once the patient is out of bed more, increases his oral intake, and decreases use of opioid pain medication. The patient is noted to have a mild hyponatremia, but his sodium level is stable and shows an upward trend. Dictated by... Singh CarneyPGregRGregN. for Nathaly Chin/paloma TD: 02/25/2017 15:37 JOB #: [id number] DISCHARGE SUMMARY Page 1 of 1 X Rachell Pham APRN DISCHARGE SUMMARY
[2017-02-21 22:25] LABS: BASOPHIL# 0.1 X10e3 (0-0.3); EOSINOPHIL# 0.9 X10e3 (0-0.7); EOSINOPHIL% 7.6 % (0.0-7.0); HEMATOCRIT 36.7 % (38.0-50.0); HEMOGLOBIN 12.1 gm/dL (13.0-16.0); LYMPHOCYTE# 1.8 X10e3 (1.0-3.5); LYMPHOCYTE% 15.8 % (17.0-45.0); MEAN CELL VOLUME 84.8 FL (83-96); MEAN PLATELET VOLUME 9.3 FL (6.5-11.5); MONOCYTE# 1.1 X10e3 (0-1.0); MONOCYTE% 9.2 % (3.0-12.0); NEUTROPHIL# 7.7 X10e3 (1.5-7.1); NEUTROPHIL% 66.4 % (40-75); PLATELET COUNT 292 X10e3 (140-420); RED BLOOD COUNT 4.32 X10e (3.90-5.60); RED CELL DISTRIBUTION WIDTH 13.3 % (11.0-15.5); WHITE BLOOD COUNT 11.6 X10e3 (4.0-10.5)
[2017-02-21 22:26] LABS: DIFF IND NO
[2017-02-21 22:51] LABS: ALBUMIN SERUM 3.9 g/dL (3.5-5.0); BILIRUBIN, DIRECT 0.3 mg/dL (0.0-0.2); BILIRUBIN,INDIRECT 1.1 mg/dL (0.0-0.9); BILIRUBIN,TOTAL 1.4 mg/dL (0.2-2.0); BUN/CREATININE RATIO 15.45; CALCIUM SERUM 9.5 mg/dL (8.4-10.2); CREATININE SERUM 1.1 mg/dL (0.6-1.4); GLOM FILT RATE Estimated 65.8 mL/min (>60); POTASSIUM 4.5 mmol/L (3.5-5.1); PROTEIN TOTAL SERUM 7.3 g/dL (6.0-8.3)
[2017-02-22 00:07] LABS: POC - CKMB 2.2 ng/mL (0.0-7.9); POC - TROPONIN <0.05 ng/mL (<=0.05)
[2017-02-22 00:10] LABS: URINE SOURCE CLEAN CATCH
[2017-02-22 00:14] LABS: URINE APPEARANCE CLOUDY; URINE BLOOD 1+ (NEG); URINE COLOR DK YELLOW; URINE GLUCOSE >1000 MG/DL (NEG); URINE KETONE 3+ (NEG); URINE LEUKOCYTE ESTERASE 1+ (NEG); URINE NITRATE POS (NEG); URINE PH 5.5 (5-8); URINE PROTEIN 1+ (NEG); URINE SPECIFIC GRAVITY 1.037 (1.003-1.035)
[2017-02-22 00:17] LABS: CULTURE INDICATED? YES; URINE BACTERIA AUWI 4+ (NEGATIVE); URINE SQUAMOUS EPITHELIAL CELL NONE SEEN /[HPF]; UWBCS1 AUWI INNUM (0-5)
[2017-02-22 00:25] LABS: URINE BILIRUBIN NEG (NEG)
[2017-02-22 06:11] LABS: BASOPHIL# 0.1 X10e3 (0-0.3); BASOPHIL% 0.7 % (0-2.5); EOSINOPHIL# 0.8 X10e3 (0-0.7); EOSINOPHIL% 8.2 % (0.0-7.0); HEMATOCRIT 31.7 % (38.0-50.0); HEMOGLOBIN 10.6 gm/dL (13.0-16.0); LYMPHOCYTE# 1.4 X10e3 (1.0-3.5); LYMPHOCYTE% 14.4 % (17.0-45.0); MEAN CELL VOLUME 84.3 FL (83-96); MEAN CORPUSCULAR HEMOGLOBIN 28.2 PG (28-34); MEAN CORPUSCULAR HGB CONC 33.4 g/dL (30-36); MEAN PLATELET VOLUME 9.1 FL (6.5-11.5); MONOCYTE# 0.8 X10e3 (0-1.0); MONOCYTE% 8.4 % (3.0-12.0); NEUTROPHIL# 6.8 X10e3 (1.5-7.1); NEUTROPHIL% 68.3 % (40-75); PLATELET COUNT 257 X10e3 (140-420); RED BLOOD COUNT 3.76 X10e (3.90-5.60); RED CELL DISTRIBUTION WIDTH 13.4 % (11.0-15.5); WHITE BLOOD COUNT 9.9 X10e3 (4.0-10.5)
[2017-02-22 06:12] LABS: DIFF IND NO
[2017-02-22 06:51] LABS: BUN/CREATININE RATIO 18.88; CALCIUM SERUM 8.6 mg/dL (8.4-10.2); CREATININE SERUM 0.9 mg/dL (0.6-1.4); GLOM FILT RATE Estimated 83.8 mL/min (>60); POTASSIUM 3.6 mmol/L (3.5-5.1)
[2017-02-22] MEDS ORDERED: LEVEMIR SUBQ (11:57)
[2017-02-22] MEDS ORDERED: GABAPENTIN300 M2 PO (11:58)
[2017-02-22] MEDS ORDERED: ALBUTEROL17 GM INH (11:58)
[2017-02-22] MEDS ORDERED: OXYBUTYNIN CHLO15 MG PO (12:00)
[2017-02-23 05:36] LABS: HEMATOCRIT 29.8 % (38.0-50.0); HEMOGLOBIN 9.9 gm/dL (13.0-16.0); MEAN CELL VOLUME 84.3 FL (83-96); MEAN CORPUSCULAR HEMOGLOBIN 28.1 PG (28-34); MEAN CORPUSCULAR HGB CONC 33.3 g/dL (30-36); RED BLOOD COUNT 3.53 X10e (3.90-5.60); RED CELL DISTRIBUTION WIDTH 13.3 % (11.0-15.5)
[2017-02-23 06:22] LABS: BUN/CREATININE RATIO 33.75; CALCIUM SERUM 8.4 mg/dL (8.4-10.2); CREATININE SERUM 0.8 mg/dL (0.6-1.4); MAGNESIUM 1.6 mg/dL (1.6-3.0); POTASSIUM 4.7 mmol/L (3.5-5.1)
[2017-02-23] MEDS ORDERED: PYRIDIUM PO (10:55)
[2017-02-24 05:55] LABS: BASOPHIL# 0.1 X10e3 (0-0.3); BASOPHIL% 0.6 % (0-2.5); EOSINOPHIL# 0.9 X10e3 (0-0.7); EOSINOPHIL% 9.9 % (0.0-7.0); HEMATOCRIT 25.9 % (38.0-50.0); HEMOGLOBIN 8.9 gm/dL (13.0-16.0); LYMPHOCYTE# 1.4 X10e3 (1.0-3.5); LYMPHOCYTE% 16.1 % (17.0-45.0); MEAN CELL VOLUME 83.5 FL (83-96); MEAN CORPUSCULAR HEMOGLOBIN 28.7 PG (28-34); MEAN CORPUSCULAR HGB CONC 34.3 g/dL (30-36); MEAN PLATELET VOLUME 8.9 FL (6.5-11.5); MONOCYTE# 0.7 X10e3 (0-1.0); MONOCYTE% 7.8 % (3.0-12.0); NEUTROPHIL# 5.7 X10e3 (1.5-7.1); NEUTROPHIL% 65.6 % (40-75); PLATELET COUNT 211 X10e3 (140-420); RED CELL DISTRIBUTION WIDTH 13.1 % (11.0-15.5); WHITE BLOOD COUNT 8.7 X10e3 (4.0-10.5)
[2017-02-24 06:04] LABS: DIFF IND NO
[2017-02-24 06:38] LABS: BUN/CREATININE RATIO 38.75; CALCIUM SERUM 8.1 mg/dL (8.4-10.2); CREATININE SERUM 0.8 mg/dL (0.6-1.4)
[2017-02-24 18:12] LABS: HEMATOCRIT 29.2 % (38.0-50.0); HEMOGLOBIN 9.6 gm/dL (13.0-16.0)
[2017-02-25 06:08] LABS: HEMATOCRIT 26.1 % (38.0-50.0); HEMOGLOBIN 8.8 gm/dL (13.0-16.0); MEAN CELL VOLUME 83.8 FL (83-96); MEAN CORPUSCULAR HEMOGLOBIN 28.3 PG (28-34); MEAN CORPUSCULAR HGB CONC 33.8 g/dL (30-36); MEAN PLATELET VOLUME 9.1 FL (6.5-11.5); RED BLOOD COUNT 3.12 X10e (3.90-5.60); RED CELL DISTRIBUTION WIDTH 13.4 % (11.0-15.5); WHITE BLOOD COUNT 7.6 X10e3 (4.0-10.5)
[2017-02-25 06:56] LABS: BUN/CREATININE RATIO 48.57; CALCIUM SERUM 8.4 mg/dL (8.4-10.2); CREATININE SERUM 0.7 mg/dL (0.6-1.4); MAGNESIUM 1.7 mg/dL (1.6-3.0)
== END 2017-02-25 18:57 | DRG 698 ==
LOC: CED 20:35 → CEDOF 02-22 01:40 → CED 02-22 01:47 → CEDOF 02-22 02:29 → C2A 02-22 02:29
PROVIDERS: Emergency Medicine; Internal Medicine; Nurse Practitioner
PROC: 0T9B70Z Drainage of Bladder with Drainage Device, Via Natural or Artificial Opening (ICD-10-PCS; principal; 2017-02-22)
PROC: 02HV33Z Insertion of Infusion Device into Superior Vena Cava, Percutaneous Approach (ICD-10-PCS; 2017-02-25)
DX: T83.511A Infection and inflammatory reaction due to indwelling urethral catheter, initial encounter (principal); L89.153 Pressure ulcer of sacral region, stage 3; E11.65 Type 2 diabetes mellitus with hyperglycemia; E87.1 Hypo-osmolality and hyponatremia; J44.9 Chronic obstructive pulmonary disease, unspecified; I10 Essential (primary) hypertension; F17.210 Nicotine dependence, cigarettes, uncomplicated; D50.9 Iron deficiency anemia, unspecified; Z79.4 Long term (current) use of insulin; I25.10 Atherosclerotic heart disease of native coronary artery without angina pectoris; E78.5 Hyperlipidemia, unspecified; Z90.49 Acquired absence of other specified parts of digestive tract; N40.1 Benign prostatic hyperplasia with lower urinary tract symptoms; R33.8 Other retention of urine; K59.00 Constipation, unspecified; L89.629 Pressure ulcer of left heel, unspecified stage; Z85.46 Personal history of malignant neoplasm of prostate; Z87.442 Personal history of urinary calculi; Z86.73 Personal history of transient ischemic attack (TIA), and cerebral infarction without residual deficits; B96.20 Unspecified Escherichia coli [E. coli] as the cause of diseases classified elsewhere; Z16.12 Extended spectrum beta lactamase (ESBL) resistance; K21.9 Gastro-esophageal reflux disease without esophagitis; Z79.899 Other long term (current) drug therapy; Z88.1 Allergy status to other antibiotic agents; Z88.5 Allergy status to narcotic agent
CPT/HCPCS: 36415; 71010; 80048; 80076; 81003; 82553; 82947; 83036; 83735; 84484; 85014; 85018; 85025; 85027; 87086; 87088; 87186; 93005; 94760; 96361; 96374; 97116; 97162; 97166; 97530; 99283; 99285; G8978-GP; G8979-GP; G8987-GO; G8988-GO; J1650; J1815; J2185; J3475